=== PATIENT | male | born 1970 | race African-American/Black ===

== ENCOUNTER → 2016-12-31 | Outpatient (CLI) | payer OTHER ==
[~2016-12-31] MED LIST: MULTIVITAMINS PO
== END ==
LOC: ULTRA 08:00
DX: K76.0 Fatty (change of) liver, not elsewhere classified (principal); R16.0 Hepatomegaly, not elsewhere classified; R10.9 Unspecified abdominal pain; R14.0 Abdominal distension (gaseous)

== ENCOUNTER → 2018-08-31 | Outpatient (CLI) | payer OTHER ==
--- NOTE | ~2018-08-31 | SLE ---
[facility] [place] [address] POLYSOMNOGRAPHY STUDY Name: GALILEA BARONE Room #: REG [facility]#: [id number] Admission: 08/31/18 Attend Phys: Surya Mcpherson MD Discharge: Date of : 74 Report #: [id number] THIS REPORT FOR: //name// CC: Surya Sellers MD DATE OF SERVICE: 08/31/2018 SLEEP STUDY ATTENDING PHYSICIAN: Dr. Jean Paul Sellers. The patient is a 48-year-old who weighs 270 pounds and 69 inches tall with a BMI of 39.9. The patient's Amite score was 13. The patient had a previous home sleep study and was found to have severe CORAZON, had an AHI of 59 per hour along with severe nocturnal hypoxia. The patient returned for in-lab CPAP titration study at [facility]. During the night study, the patient spent 478 minutes in bed and slept for 414 minutes with a sleep efficiency of 86.6%. Sleep latency was 10.2 minutes with a short REM latency of 51.2 minutes. Overall, sleep architecture showed normal stage 1 sleep, increased stage 2 sleep, which was 72% of the total sleep time. Absent N3 sleep and normal REM sleep. EKG monitoring revealed average heart rate of 78 beats per minute with a maximum of 100 beats per minute, normal sinus rhythm, no sustained arrhythmias observed. Mild PLMS were seen at an index of 10 per hour and only 2 per hour caused EEG arousals. The patient was started on CPAP at a pressure of 5 cm water and titrated up to 15 cm water. The emanations analysis technician initially used nasal pillows. However, due to inability to obtain tight seal, the size of the nasal pillows was increased to large. The patient continued to have leaks resulting in increased central apneas and hypopneas beyond the pressure of 10 cm of water. As a result, the patient was then switched to a large size nasal mask. The patient did very well at that pressure of 10 cm of water. The patient slept for 55 minutes. The patient had supine sleep throughout. However, REM sleep was not seen at this pressure. The patient's AHI was reduced to only 3 per hour and oxygen saturation remained above 91%. This would be the best final recommended pressure for this patient. IMPRESSION: 1. Severe sleep apnea-hypopnea syndrome diagnosed by home sleep study. [address] [address] POLYSOMNOGRAPHY STUDY Name: JHON BARONEMisha Flores Room #: REG CLI [facility]#: [id number] Admission: 08/31/18 Attend Phys: Surya Mcpherson MD Discharge: Date of : 74 Report #: [id number] 2. Mild periodic limb movements in sleep without any significant EEG arousals. This does not need to be treated. RECOMMENDATIONS: 1. CPAP at 10 cm water via large nasal mask should be used on a nightly basis. This resulted in complete elimination of the patient's sleep apnea as well as prevented mask leak. 2. Follow up in 4-6 weeks to assess compliance with the CPAP and to review the download data in 4-6 weeks. 3. Avoid [employer] depressants. 4. Caution regarding driving until symptoms of sleep apnea resolve with the use of CPAP. <ELECTRONICALLY SIGNED> By: Surya Mcpherson MD 09/02/18 [id number] Surya Mcpherson MD /nt
== END ==
LOC: SLEEPLAB 10:23
DX: G47.61 Periodic limb movement disorder (principal)